=== PATIENT | female | born 1990 | race Caucasian/White ===

== ENCOUNTER 2019-04-13 00:45 | Inpatient (IN) ==
[2019-04-13] MEDS ORDERED: OXYTOCIN 30 UNITS/500 ML BAG IV PRN ×3 (01:11→16:18)
[2019-04-13] MEDS: LACTATED RINGER'S 1,000 ML IV PRN ×3 (01:15→12:01)
[2019-04-13 01:44] LABS: Hematocrit (blood only) 31.8 % (37-47); Hemoglobin 10.4 g/dL (12.0-16.0); Mean Corpuscular Hemoglobin 27.9 pg (25-34); Mean Corpuscular Volume 85.3 fL (80-100); Mean Platelet Volume 11.7 fL (7.4-10.4); Platelet Count 220 K/uL (130-400); RDW Coefficient of Variation 13.8 % (11.5-14.5); RDW Standard Deviation 42.7 fL (36.4-46.3); Red Blood Count 3.73 M/uL (4.2-5.4); White Blood Count 9.06 K/uL (4.8-10.8)
--- NOTE | 2019-04-13 01:52 | History & Physical Report ---
Date of Service April 13, 2019 Assessment & Plan (1) : Will admit to L&D, start pitocin. Green bulb still in place. Will allow this to fall out on its own. Patient is agreeable. History of Present Illness Chief Complaint: IOL, contractions Primary Care Provider: OLIVIER PCP 28yo @ 40 07/24 here with contractions. Her green bulb was placed last night and she began to feel ctx every few minutes and returned to the hospital. + movement, no vaginal bleeding, no leaking of fluid. uncomplicated. Allergies Allergy/AdvReac Type Severity Reaction Status Date / Time No Known Drug Allergies Allergy Verified 04/11/19 10:50 Home Medications Home Medications Medication Instructions Recorded Confirmed Type PNV cmb#95-ferrous fumarate-FA 1 tab PO DAILY 04/12/19 04/12/19 History [] Patient History Family History (Updated 11/18/18 @ 14:03 by Viktoriya Acosta) Grandfather (Maternal) Colorectal cancer Grandmother (Maternal) Diabetes Other Thyroid disease Social History (Updated 11/18/18 @ 14:03 by Viktoriya Acosta) Preferred Language: Kyrgyz marital status: Feels Safe at Home: Yes Smoking Status: Never smoker Hx Alcohol Use: No Hx Substance Use: No Review of Systems All systems reviewed & are unremarkable except as noted in HPI & below Physical Exam Physical Exam: FHT: Cat 1 [place]cher: Q 4-7 min Constitutional: WD/WN, vitals as above Respiratory: normal respiratory effort, lungs clear to auscultation no respiratory distress Cardiovascular: Rate/Rhythm: regular rate and regular rhythm Gastrointestinal (Abdomen): Inspection/Auscultation: abdomen normal to inspection Percussion/Palpation: abdomen soft; abdomen nontender Gravid. No s/s chorio or abruption. Skin: no rashes, warm and dry Psychiatric: A+Ox3, euthymic affect Results & Data Vital Signs (Past 12 Hours) Vital Signs Pulse BP 04/13/19 00:54 56 L 115/68
[2019-04-13 02:02] LABS: Mean Corpuscular Hgb Conc 32.7 g/dL (32-36)
--- NOTE | 2019-04-13 09:06 | Labor Progress Brief Note ---
Date of Service April 13, 2019 Subjective pt sitting up in bed, denies complaints. Assessment & Plan (1) Post-dates : (2) Encounter for induction of labor: cont with pit, fhts categ 1. green balloon in place. plan exam in next se veral hours. Physical Exam Constitutional: WD/WN, vitals as above Genitourinary: OB Exam Monitor Tracing: + external FHT monitor used, + external uterine monitor used (irreg, pit at 9), + category I and + normal FHT variability Results & Data Vital Signs (Past 12 Hours) Vital Signs Temp Pulse Resp BP 04/13/19 08:55 61 120/64 04/13/19 08:25 63 118/63 04/13/19 07:55 54 L 142/68 H 04/13/19 07:26 60 125/62 04/13/19 07:08 98.4 F 69 20 121/75 04/13/19 06:55 69 126/76 04/13/19 06:26 63 116/62 04/13/19 05:55 63 115/62 04/13/19 05:45 98.2 F 04/13/19 05:25 71 113/70 04/13/19 04:55 61 142/67 H 04/13/19 04:25 61 122/73 04/13/19 00:56 97.5 F L 56 L 115/68 04/13/19 00:54 56 L 115/68
--- NOTE | 2019-04-13 09:39 | Labor Progress Brief Note ---
Date of Service April 13, 2019 Subjective feels comfortable Assessment & Plan (1) Post-dates : (2) Encounter for induction of labor: c/w pit, will see how arom helps labor pattern. Physical Exam Constitutional: WD/WN, vitals as above Genitourinary: Manual OB Exam: + cervical dilation 4 cm, + cervical effacement (75%), + station -2 and + amniotic fluid clear OB Exam Monitor Tracing: + external FHT monitor used (120 mod variability, reactive), + external uterine monitor used (q3-4 pit at 11), + category I and + normal FHT variability Results & Data Vital Signs (Past 12 Hours) Vital Signs Temp Pulse Resp BP 04/13/19 09:25 73 112/69 04/13/19 08:55 61 120/64 04/13/19 08:25 63 118/63 04/13/19 07:55 54 L 142/68 H 04/13/19 07:26 60 125/62 04/13/19 07:08 98.4 F 69 20 121/75 04/13/19 06:55 69 126/76 04/13/19 06:26 63 116/62 04/13/19 05:55 63 115/62 04/13/19 05:45 98.2 F 04/13/19 05:25 71 113/70 04/13/19 04:55 61 142/67 H 04/13/19 04:25 61 122/73 04/13/19 00:56 97.5 F L 56 L 115/68 04/13/19 00:54 56 L 115/68
[2019-04-13] MEDS ORDERED: BUPIVACAINE 0.25% 30 ML VIAL ONE (11:45)
[2019-04-13] MEDS ORDERED: fentaNYL citrate 100 MCG/2 ML VIAL ONE (11:45)
[2019-04-13] MEDS ORDERED: ePHEDrine sulfate 50 MG/ML AMP ONE (11:45)
[2019-04-13] MEDS ORDERED: fentaNYL 2MCG/ML ROPIV 1.25MG/ML 100 ML BAG EPI ONE (11:46)
[2019-04-13] MEDS ORDERED: NALOXONE HCL 1 MG in SODIUM CHLORIDE 0.9% 1000ML 1,000 ML IV PRN (11:59)
[2019-04-13] MEDS ORDERED: NALBUPHINE HCL INJ 10 MG/ML AMP IV PRN (11:59)
[2019-04-13] MEDS ORDERED: fentaNYL 2MCG/ML ROPIV 1.25MG/ML 100 ML BAG EPI PRN (11:59)
[2019-04-13] MEDS ORDERED: NALOXONE HCL 0.4 MG/1 ML VIAL/CARP IV PRN (11:59)
[2019-04-13] MEDS ORDERED: DiphenhydrAMINE HCL 50 MG/ML VIAL IV PRN (11:59)
[2019-04-13] MEDS ORDERED: ePHEDrine sulfate 50 MG/ML AMP IV PRN (11:59)
--- NOTE | 2019-04-13 12:26 | Anesthesiology Consultation ---
Date of Service April 13, 2019 Assessment & Plan Chart Review Chart Review: Acceptable Risk for Surgery Consults Requested none History Height/Weight Height: 5 ft 3 in Weight: 68.039 kg Allergies Allergy/AdvReac Type Severity Reaction Status Date / Time No Known Drug Allergies Allergy Verified 04/11/19 10:50 Medications Home Medications Medication Instructions Recorded Confirmed Last Taken PNV cmb#95-ferrous fumarate-FA 1 tab PO DAILY 04/12/19 04/12/19 04/12/19 09:00 [] Active Medications Generic Name Dose Route Start Last Admin Trade Name Freq PRN Reason Stop Dose Admin Lactated Ringer's 1,000 mls @ 125 mls/hr 04/13/19 01:11 04/13/19 12:25 Lr IV 04/15/19 01:10 125 mls/hr .Q8H PRN Infusion L&D Protocol Protocol Oxytocin 30 units in 500 mls @ 17 mls/hr 04/13/19 01:11 04/13/19 11:20 Pitocin IV 04/15/19 01:10 1.02 units/hr .Q24H PRN 17 mls/hr Labor Induction/Augmentation Titration Protocol 1.02 UNITS/HR Past Family History Family History Grandfather (Maternal) Colorectal cancer Grandmother (Maternal) Diabetes Other Thyroid disease Past Surgical History Surgical History H/O oral surgery Social History Smoking Status: Never smoker Hx Alcohol Use: No Hx Substance Use: No Physical Exam Vital Signs Last Vital Signs Temp 36.9 C 04/13/19 09:45 Pulse 69 04/13/19 12:23 Resp 20 04/13/19 09:45 BP 122/65 04/13/19 12:23 Pulse Ox 99 04/13/19 12:20 Testing Laboratory Results 04/13/19 01:24
--- NOTE | 2019-04-13 13:32 | Labor Progress Brief Note ---
Date of Service April 13, 2019 Subjective comfortable with epidural Assessment & Plan (1) Post-dates : (2) Encounter for induction of labor: good cx change. fhts categ 1. c/ w pit Physical Exam Constitutional: WD/WN, vitals as above Genitourinary: Manual OB Exam: + cervical dilation 7 cm, + cervical effacement 90% and + station 0 OB Exam Monitor Tracing: + external FHT monitor used (130 mod variability), + external uterine monitor used (q3, pit at 17), + category I (early decels) and + normal FHT variability Results & Data Vital Signs (Past 12 Hours) Vital Signs Temp Pulse Resp BP Pulse Ox 04/13/19 13:25 74 100 04/13/19 13:20 68 100 04/13/19 13:15 64 115/65 100 04/13/19 13:10 73 100 04/13/19 13:05 64 100 04/13/19 13:01 61 112/56 L 04/13/19 13:00 62 100 04/13/19 12:55 62 100 04/13/19 12:50 64 100 04/13/19 12:45 69 100 04/13/19 12:44 67 117/59 L 04/13/19 12:40 74 117/57 L 100 04/13/19 12:35 72 113/61 99 04/13/19 12:30 78 98 04/13/19 12:29 71 119/64 04/13/19 12:27 71 120/64 04/13/19 12:25 75 120/63 100 04/13/19 12:23 69 122/65 04/13/19 12:21 72 121/68 04/13/19 12:20 72 99 04/13/19 12:19 80 121/69 04/13/19 12:17 83 111/76 04/13/19 12:15 74 99 04/13/19 12:10 69 99 04/13/19 12:05 80 100 04/13/19 12:00 77 100 04/13/19 10:39 72 139/65 04/13/19 09:45 98.4 F 80 20 123/72 04/13/19 09:25 73 112/69 04/13/19 08:55 61 120/64 04/13/19 08:25 63 118/63 04/13/19 07:55 54 L 142/68 H 04/13/19 07:26 60 125/62 04/13/19 07:08 98.4 F 69 20 121/75 04/13/19 06:55 69 126/76 04/13/19 06:26 63 116/62 04/13/19 05:55 63 115/62 04/13/19 05:45 98.2 F 04/13/19 05:25 71 113/70 04/13/19 04:55 61 142/67 H 04/13/19 04:25 61 122/73
--- NOTE | 2019-04-13 15:08 | Labor Progress Brief Note ---
Date of Service April 13, 2019 Subjective feeling pressure, per nurse completely dilated. Assessment & Plan (1) Post-dates : (2) Encounter for induction of labor: c/w pit, fhts categ 2, begin 2nd stage. Physical Exam Constitutional: WD/WN, vitals as above Genitourinary: OB Exam Monitor Tracing: + external FHT monitor used (150 moderate variability , +spont accels, occas variable decels), + external uterine monitor used (q2-3), + category II, + normal FHT variability and + early decelerations present Results & Data Vital Signs (Past 12 Hours) Vital Signs Temp Pulse Resp BP Pulse Ox 04/13/19 15:05 74 100 04/13/19 15:02 63 122/75 04/13/19 15:00 68 116/68 100 04/13/19 14:55 67 97 04/13/19 14:50 63 100 04/13/19 14:46 60 113/65 04/13/19 14:45 67 99 04/13/19 14:40 63 100 04/13/19 14:35 65 100 04/13/19 14:30 64 121/71 100 04/13/19 14:25 65 100 04/13/19 14:20 60 100 04/13/19 14:15 61 125/73 100 04/13/19 14:10 61 100 04/13/19 14:05 64 99 04/13/19 14:01 72 119/69 04/13/19 14:00 83 100 04/13/19 13:55 66 100 04/13/19 13:50 66 100 04/13/19 13:45 65 124/69 100 04/13/19 13:40 66 100 04/13/19 13:35 66 100 04/13/19 13:30 68 117/70 100 04/13/19 13:25 74 100 04/13/19 13:20 68 100 04/13/19 13:15 64 115/65 100 04/13/19 13:10 73 100 04/13/19 13:05 64 100 04/13/19 13:01 61 112/56 L 04/13/19 13:00 62 100 04/13/19 12:55 62 100 04/13/19 12:50 64 100 04/13/19 12:45 69 100 04/13/19 12:44 67 117/59 L 04/13/19 12:40 74 117/57 L 100 04/13/19 12:35 72 113/61 99 04/13/19 12:30 78 98 04/13/19 12:29 71 119/64 04/13/19 12:27 71 120/64 04/13/19 12:25 75 120/63 100 04/13/19 12:23 69 122/65 04/13/19 12:21 72 121/68 04/13/19 12:20 72 99 04/13/19 12:19 80 121/69 04/13/19 12:17 83 111/76 04/13/19 12:15 74 99 04/13/19 12:10 69 99 04/13/19 12:05 80 100 04/13/19 12:00 77 100 04/13/19 10:39 72 139/65 04/13/19 09:45 98.4 F 80 20 123/72 04/13/19 09:25 73 112/69 04/13/19 08:55 61 120/64 04/13/19 08:25 63 118/63 04/13/19 07:55 54 L 142/68 H 04/13/19 07:26 60 125/62 04/13/19 07:08 98.4 F 69 20 121/75 04/13/19 06:55 69 126/76 04/13/19 06:26 63 116/62 04/13/19 05:55 63 115/62 04/13/19 05:45 98.2 F 04/13/19 05:25 71 113/70 04/13/19 04:55 61 142/67 H 04/13/19 04:25 61 122/73
[2019-04-13] MEDS ORDERED: BENZOCAINE 20% AER SPR 82.5 GM CAN EXT PRN (16:18)
[2019-04-13] MEDS ORDERED: SUPERCREAM 0.870% 15 GM JAR EXT PRN (16:18)
[2019-04-13] MEDS ORDERED: OXYCODONE/ACETAMINOPHEN 5mg/325mg TAB PO PRN (16:18)
[2019-04-13] MEDS ORDERED: HYDROCORTISONE ACETATE 25 MG SUPP PR PRN (16:18)
[2019-04-13] MEDS ORDERED: DIPHTHERIA/TETANUS/PERTUSSIS 0.5 ML SYR/VIAL IM ONE (16:23)
--- NOTE | 2019-04-13 16:24 | Delivery Summary ---
Vaginal Delivery Summary Date of Service April 13, 2019 Vaginal Delivery Summary The patient dilated to complete and pushed to deliver a viable female Apgars 8 and 9 via over partial 3rd degree perineal laceration. Mouth and nose bulb suctioned at perineum. Shoulders and body delivered with ease. was vigorous and crying at . Cord clamped and infant to maternal abdomen where the cord was then doubly clamped and cut. Placenta delivered spontaneously and intact, three-vessel cord. Hemostasis achieved with dilute pitocin and uterine massage. Cervix intact. Bilateral sulcal tears noted and repaired with 3-0 vicryl and then remainder of vaginal tissues to hymen reapproximated. Anal sphincter intact but capsule reinforced with interrupted sutures of 2-0 vicryl. Remainder of perineum reapproximated in usual fashion with 3-0 vicry. EBL 300 cc. Mother and baby stable recovery. [facility] Vaginal Delivery Charge Vaginal Delivery Codes: 98321 global code for the antepartum, delivery, and post-
[2019-04-13] MEDS ORDERED: OXYTOCIN 20 UNITS in LACTATED RINGER'S 1,000 ML IV SCH (16:30)
--- NOTE | 2019-04-13 17:57 | Anesthesia Procedure Note ---
Date of Service April 13, 2019 Anesthesia Post Epidural Note Vital Signs Vital Signs: Temp Pulse Resp BP Pulse Ox 36.9 C 76 20 110/64 98 04/13/19 09:45 04/13/19 17:45 04/13/19 09:45 04/13/19 17:45 04/13/19 15:50 Notes Mental Status: alert / awake / arousable Nausea / Vomiting: adequately controlled Pain: adequately controlled Airway Patency, RR, SpO2: stable & adequate BP & HR: stable & adequate Hydration State: stable & adequate Neuraxial Anesthesia: was administered and sensory block is resolving Anesthetic Complications: no major complications apparent and Pt Satisfied with anesthetic care Epidural: Removed without complications and With tip intact
[2019-04-13] MEDS: IBUPROFEN 600 MG TAB PO PRN (19:32)
[2019-04-13] MEDS: DOCUSATE SODIUM 100 MG CAP PO SCH (20:49)
[2019-04-14] MEDS: IBUPROFEN 600 MG TAB PO PRN ×4 (01:01→19:26)
--- NOTE | 2019-04-14 07:43 | Obstetrical Progress Note ---
Date of Service April 14, 2019 Assessment & Plan (1) Encounter for care and examination after delivery: 28 yo induced for post-dates without complications at 40w4d. 1) PPD1 s/p - ambulating, tolerating full diet - no complaints this AM - trying - supportive care (2) Post-dates : Supervising Physician Co-Signing Physician Notes Resident Physician Supervision Note: I was present with Dr. Degroot during the history and exam. I discussed the case with the resident and agree with the findings and plan as documented in the note. Any exceptions or clarifications are listed here: doing well, ff 2 down appropriate tenderness, breast feeding, eating, voiding, ambulating. routine care. Documented By: Mandie Spangler MD, FACOG Subjective No complaints this AM. Has been able to tolerate an oral diet, ambulate, and void without difficulty. Passing gas, no BM yet. Review of Systems Constitutional: + fatigue; no fever and no chills Respiratory: no cough and no dyspnea Cardiovascular: no chest pain, no syncope, no edema and no calf pain Gastrointestinal: no abdominal pain, no nausea, no vomiting, no cramping, no constipation and no diarrhea/loose stools Genitourinary: no dysuria and no difficulty urinating Neurologic: no headache(s) Physical Exam Constitutional: well developed and well nourished Respiratory: normal respiratory effort; no respiratory distress, no labored breathing and no cough Auscultation: no crackles, no rales, no rhonchi and no wheezes Cardiovascular: Rate/Rhythm: regular rate and regular rhythm Heart Sounds: no gallop, no murmur and no cardiac rub Extremities: no pedal edema Gastrointestinal (Abdomen): Inspection/Auscultation: + abdomen distended and normal bowel sounds Percussion/Palpation: abdomen soft; no guarding Musculoskeletal: no tenderness to palpation of calves bilaterally Genitourinary: Uterus small and firm, palpable in midline at level of umbilicus, some tenderness to palpation. Results & Data Vital Signs (Past 12 Hours) Vital Signs Temp Pulse Resp BP Pulse Ox 04/14/19 04:00 36.3 C L 59 L 16 106/72 04/14/19 01:00 36.9 C 58 L 16 121/80 100 04/13/19 20:35 36.7 C 67 16 104/65 99 Resident Activity Tracking Resident Involvement: Resident Care Provided Care Provided: Adult Hospital Medicine and OB Delivery
[2019-04-14] MEDS: DOCUSATE SODIUM 100 MG CAP PO SCH ×2 (08:45→21:28)
[2019-04-14] MEDS: ACETAMINOPHEN 325 MG TAB PO PRN ×3 (10:10→22:16)
[2019-04-15] MEDS: IBUPROFEN 600 MG TAB PO PRN ×3 (00:15→13:07)
[2019-04-15] MEDS: DOCUSATE SODIUM 100 MG CAP PO SCH (07:52)
--- NOTE | 2019-04-15 08:40 | Obstetrical Progress Note ---
Date of Service April 15, 2019 Assessment & Plan (1) Encounter for care and examination after delivery: - patient desires d/c - instructions given - f/u in 6 weeks Subjective Ambulation: ambulating normally Diet Tolerance:: regular diet Feeding Type:: breast feeding Physical Exam Constitutional WD/WN, vitals as above Gastrointestinal (Abdomen) Fundus firm below umbilicus Musculoskeletal No deep calf tenderness Results & Data Vital Signs (Past 12 Hours) Vital Signs Temp Pulse Resp BP Pulse Ox 04/14/19 23:45 98.2 F 65 18 112/69 99
== END 2019-04-15 13:15 | disposition home or self-care (01) | DRG 768 ==
LOC: OPB 00:45 → 4S1 00:47 → 4S2 19:30

== ENCOUNTER 2021-04-24 07:46 | Inpatient (IN) ==
[2021-04-24] MEDS ORDERED: OXYTOCIN 30 UNITS/500 ML BAG IV PRN ×3 (07:57→22:46)
[2021-04-24 08:20] LABS: Hematocrit (blood only) 37.4 % (37-47); Hemoglobin 12.2 g/dL (12.0-16.0); Mean Corpuscular Hemoglobin 30.6 pg (25-34); Mean Corpuscular Hgb Conc 32.6 g/dL (32-36); Mean Corpuscular Volume 93.7 fL (80-100); Mean Platelet Volume 11.4 fL (7.4-10.4); Platelet Count 210 K/uL (130-400); RDW Coefficient of Variation 13.8 % (11.5-14.5); RDW Standard Deviation 47.4 fL (36.4-46.3); Red Blood Count 3.99 M/uL (4.2-5.4); White Blood Count 7.42 K/uL (4.8-10.8)
--- NOTE | 2021-04-24 08:48 | History & Physical Report ---
Date of Service April 24, 2021 Assessment & Plan (1) Post term , 41 weeks: (2) Encounter for induction of labor: Plan: admit, green for cervical ripening placed. fetus reassuring. plan to start pit at some time and likely arom. desires epidural. Anticipate . Admission and Anticipated Discharge Date Admission Date: April 24, 2021 History of Present Illness Chief Complaint: pd induction Primary Care Provider: LUZMA Pride Patient is a 30yowf with iup at 41 2/7 weeks who presents to labor and delivery for postdates induction. She feels well. Occcasional contractions. no lof/vb. +fm. and Delivery Plans Placental Shelf on anatomy scan vs. Non-fused amnion *Growth monthly [id number] at 28 week *see addendum on note dated 02/19/21 * declined genetics per Dr. Spangler Flu shot 01/22/21 OB Labs: Blood Type A Positive 09/09/20 Antibody Screen NEGATIVE 09/09/20 Hemoglobin 12.0 g/dL (12.0-16.0) 01/22/21 Hematocrit 36.2 % (37-47) L 01/22/21 Mean Corpuscular Volume 90.7 fL (80-100) 09/09/20 Platelet Count 268 K/uL (130-400) 09/09/20 Rubella IgG Antibody Immune (Immune) 09/09/20 Rapid Plasma Reagin Nonreactive (Nonreactive) 09/09/20 Hepatitis B Surface Antigen Neg (Neg) 09/09/20 HIV (1&2) Ab and P24 Ag, 4th Gener Neg (Neg) 09/09/20 Glucose 1 Hour 50 gm Load 65 mg/dl (70-130) L 01/22/21 OB Optional Labs: Chlamydia trachomatis RNA NOT DETECTED (NOT DETECTED) 09/09/20 Neisseria gonorrhoeae RNA NOT DETECTED (NOT DETECTED) 09/09/20 Labs Reviewed: declined CF/SMA/cfDNA/afp gbs neg Allergies Allergy/AdvReac Type Severity Reaction Status Date / Time No Known Drug Allergies Allergy Verified 04/23/21 15:30 Home Medications Medication Instructions Recorded Confirmed Type vit no.95-ferrous 1 tab PO DAILY 04/12/19 04/23/21 History fumarate 28 mg-folic acid 800 mcg tablet () Patient History Medical History History of chicken pox Surgical History H/O adenoidectomy H/O oral surgery Family History Grandfather (Maternal) Colorectal cancer Grandmother (Maternal) Diabetes Other Thyroid disease Denies family history of Ovarian cancer Breast cancer Social History Smoking Status: Never smoker Second Hand Exposure: No; Hx Alcohol Use: No Hx Substance Use: No Preferred Language: [place] Communication Ability: Effective Manager Service Desk Required: No Beliefs That Will Affect Care: None marital status: marital status details: Vin Ivey (39) [phone] Current Living Situation: Family Current Living Situation Comment: lives with spouse, child, no pets current occupational status: employed 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 Date GA wks Lbr Lgth wt Sex Type del Anes Place Del Prov ? Com ment 12/01/17 Aborted-Spontaneous 04/13/19 40 6lbs 15oz F Epi dural [facility] Spangler No DATA ANALYTICS SPECIALIST History noncontributory Physical Exam Constitutional: WD/WN, vitals as above Gastrointestinal (Abdomen): soft, gravid, nt Psychiatric: A+Ox3, euthymic affect Genitourinary: cx--/-2 green bulb placed under direct visualization, filled with 30cc of sterile water, tolerated well toco--occasional efm--140s with mod variaiblity, accels to 150s, no decels Results & Data ([facility]) Vital Signs (Past 12 Hours) Vital Signs Temp Pulse Resp BP 04/24/21 08:09 86 110/63 04/24/21 08:03 37.0 C 18 Coding Level of Care Code None Diagnoses Post term , 41 weeks O48.0; Z3A.41 Encounter for induction of labor Z34.90
[2021-04-24] MEDS: LACTATED RINGER'S 1,000 ML IV PRN ×3 (11:53→21:54)
[2021-04-24] MEDS ORDERED: BUPIVACAINE 0.25% 30 ML VIAL ONE (14:38)
[2021-04-24] MEDS ORDERED: SODIUM CHLORIDE 0.9% INJ 10 ML VIAL ONE (14:38)
[2021-04-24] MEDS ORDERED: fentaNYL citrate 100 MCG/2 ML VIAL ONE (14:38)
[2021-04-24] MEDS ORDERED: ePHEDrine sulfate 50 MG/ML AMP ONE (14:38)
[2021-04-24] MEDS ORDERED: fentaNYL 2MCG/ML ROPIVACAINE 1.25MG/ML 100 ML BAG EPI ONE (14:39)
--- NOTE | 2021-04-24 15:42 | Anesthesiology Consultation ---
Date of Service April 24, 2021 Assessment & Plan Chart Review Chart Review: Acceptable Risk for Surgery Consults Requested none History Height/Weight Height: 5 ft 3 in Weight: 72.575 kg Allergies Allergy/AdvReac Type Severity Reaction Status Date / Time No Known Drug Allergies Allergy Verified 04/23/21 15:30 Medications Home Medications Medication Instructions Recorded Confirmed Last Taken vit no.95-ferrous 1 tab PO DAILY 04/12/19 04/24/21 04/23/21 fumarate 28 mg-folic acid 800 mcg tablet () Active Medications Generic Name Dose Route Start Last Admin Trade Name Freq PRN Reason Stop Dose Admin Lactated Ringer's 1,000 mls @ 125 mls/hr 04/24/21 07:57 04/24/21 15:13 Lr IV 04/26/21 07:56 125 mls/hr .Q8H PRN Administration L&D Protocol Protocol Oxytocin 30 units in 500 mls @ 1 mls/hr 04/24/21 10:58 04/24/21 11:53 Pitocin IV 04/26/21 10:57 0.06 units/hr .Q24H PRN 1 mls/hr Labor Induction/Augmentation Administration Protocol 0.06 UNITS/HR Past Medical History Medical History History of chicken pox Past Family History Family History Grandfather (Maternal) Colorectal cancer Grandmother (Maternal) Diabetes Other Thyroid disease Denies family history of Ovarian cancer Breast cancer Past Surgical History Surgical History H/O adenoidectomy H/O oral surgery Social History Smoking Status: Never smoker Hx Alcohol Use: No Hx Substance Use: No Physical Exam Vital Signs Last Vital Signs Temp 36.9 C 04/24/21 11:58 Pulse 83 04/24/21 15:40 Resp 18 04/24/21 15:00 BP 108/57 L 04/24/21 15:40 Pulse Ox 100 04/24/21 15:37 Testing Laboratory Results 04/24/21 08:02
[2021-04-24] MEDS ORDERED: diphenhydrAMINE 50 MG/ML VIAL IV PRN (15:43)
[2021-04-24] MEDS ORDERED: NALOXONE HCL 1 MG in SODIUM CHLORIDE 0.9% 1000ML 1,000 ML IV PRN (15:43)
[2021-04-24] MEDS ORDERED: NALBUPHINE HCL INJ 10 MG/ML AMP IV PRN (15:43)
[2021-04-24] MEDS ORDERED: ePHEDrine sulfate 50 MG/ML AMP IV PRN (15:43)
[2021-04-24] MEDS ORDERED: fentaNYL 2MCG/ML ROPIVACAINE 1.25MG/ML 100 ML BAG EPI PRN (15:43)
[2021-04-24] MEDS ORDERED: NALOXONE HCL 0.4 MG/1 ML VIAL/CARP IV PRN (15:43)
--- NOTE | 2021-04-24 17:53 | Labor Progress Brief Note ---
Date of Service April 24, 2021 Subjective Carlson bulb fell out a few hours ago and she got an epidural prior to me doing a c/s. She is comfortable. Assessment & Plan (1) Encounter for induction of labor: (2) Post term , 41 weeks: Plan: arom done. continue current management. Fetus overall category one. Admission and Anticipated Discharge Date Admission Date: April 24, 2021 Physical Exam Physical Exam: cx--4-5/75/-2 arom--copious clear toco--q 2-3min efm--140s with mod variability, accels present, rare variable Results & Data ([facility]) Vital Signs (Past 12 Hours) Vital Signs Temp Pulse Resp BP Pulse Ox 04/24/21 17:48 74 90/53 L 04/24/21 17:47 76 100 04/24/21 17:42 68 99 04/24/21 17:37 70 100 04/24/21 17:33 67 90/50 L 04/24/21 17:32 68 100 04/24/21 17:27 71 100 04/24/21 17:22 70 100 04/24/21 17:18 73 95/52 L 04/24/21 17:17 73 100 04/24/21 17:12 71 100 04/24/21 17:07 75 100 04/24/21 17:03 71 92/51 L 04/24/21 17:02 73 100 04/24/21 16:57 75 100 04/24/21 16:52 73 100 04/24/21 16:47 69 97/56 L 100 04/24/21 16:42 79 100 04/24/21 16:37 70 98 04/24/21 16:34 71 103/63 04/24/21 16:32 72 100 04/24/21 16:30 18 04/24/21 16:27 73 100 04/24/21 16:22 77 100 04/24/21 16:19 75 93/52 L 04/24/21 16:17 73 100 04/24/21 16:12 74 100 04/24/21 16:07 80 100 04/24/21 16:02 81 101/60 100 04/24/21 16:00 18 04/24/21 15:57 81 99 04/24/21 15:56 85 105/65 04/24/21 15:52 79 99 01/06/22 15:51 77 99/59 L 04/24/21 15:48 78 96/55 L 04/24/21 15:47 78 100 04/24/21 15:42 85 100 04/24/21 15:40 83 18 108/57 L 04/24/21 15:38 75 18 104/59 L 04/24/21 15:37 79 100 04/24/21 15:36 81 18 105/57 L 04/24/21 15:34 93 H 18 106/56 L 04/24/21 15:32 85 18 105/59 L 100 04/24/21 15:30 80 18 109/58 L 04/24/21 15:28 82 18 108/55 L 04/24/21 15:27 83 100 04/24/21 15:25 81 120/59 L 04/24/21 15:22 78 100 04/24/21 15:17 94 H 100 04/24/21 15:12 94 H 100 04/24/21 15:08 88 122/73 04/24/21 15:07 85 100 04/24/21 15:02 78 100 04/24/21 15:00 18 04/24/21 14:57 73 100 04/24/21 14:52 73 100 04/24/21 14:47 71 100 04/24/21 14:42 67 100 04/24/21 14:37 67 100 04/24/21 14:12 65 116/61 04/24/21 14:00 18 04/24/21 13:09 72 101/66 04/24/21 13:00 18 04/24/21 11:58 36.9 C 67 104/67 04/24/21 08:09 37.0 C 86 110/63 04/24/21 08:03 37.0 C 18 Coding Level of Care Code None Diagnoses Encounter for induction of labor Z34.90 Post term , 41 weeks O48.0; Z3A.41
--- NOTE | 2021-04-24 20:29 | Labor Progress Brief Note ---
Date of Service April 24, 2021 Subjective noting some discomfort wtih contractions Assessment & Plan (1) Encounter for induction of labor: (2) Post term , 41 weeks: Plan: continue current management. fetus overall reassuring, category one. Anticipate . Admission and Anticipated Discharge Date Admission Date: April 24, 2021 Physical Exam Physical Exam: cx--7/100/0 toco--q2-3min, pit at 6 efm--130s wtih mod variability, accels to 150s, occasional early/variable Results & Data ([facility]) Vital Signs (Past 12 Hours) Vital Signs Temp Pulse Resp BP Pulse Ox 04/24/21 20:22 80 98 04/24/21 20:18 76 102/64 04/24/21 20:17 83 100 04/24/21 20:12 75 99 04/24/21 20:07 84 100 04/24/21 20:03 72 114/69 04/24/21 20:02 70 100 04/24/21 19:57 72 100 04/24/21 19:52 76 100 04/24/21 19:47 80 107/64 100 04/24/21 19:42 86 100 04/24/21 19:37 85 100 04/24/21 19:35 82 93 04/24/21 19:32 68 106/60 99 04/24/21 19:27 63 100 04/24/21 19:22 64 100 04/24/21 19:18 66 105/59 L 04/24/21 19:17 67 100 04/24/21 19:12 64 100 04/24/21 19:07 70 100 04/24/21 19:02 74 94/54 L 100 04/24/21 19:00 36.8 C 18 04/24/21 18:57 70 100 04/24/21 18:52 86 100 04/24/21 18:47 69 98/56 L 99 04/24/21 18:42 69 99 04/24/21 18:37 63 99 04/24/21 18:32 68 102/55 L 99 04/24/21 18:30 37.0 C 18 04/24/21 18:27 67 98 04/24/21 18:22 68 99 04/24/21 18:17 70 99/55 L 99 04/24/21 18:12 71 99 04/24/21 18:07 70 99 04/24/21 18:03 76 107/56 L 04/24/21 18:02 74 99 04/24/21 18:00 37.0 C 18 04/24/21 17:57 73 99 04/24/21 17:52 72 100 04/24/21 17:48 74 90/53 L 04/24/21 17:47 76 100 04/24/21 17:42 68 99 04/24/21 17:37 70 100 04/24/21 17:33 67 90/50 L 04/24/21 17:32 68 100 04/24/21 17:27 71 100 04/24/21 17:22 70 100 04/24/21 17:18 73 95/52 L 04/24/21 17:17 73 100 04/24/21 17:12 71 100 04/24/21 17:07 75 100 04/24/21 17:03 71 92/51 L 04/24/21 17:02 73 100 04/24/21 16:57 75 100 04/24/21 16:52 73 100 04/24/21 16:47 69 97/56 L 100 04/24/21 16:42 79 100 04/24/21 16:37 70 98 04/24/21 16:34 71 103/63 04/24/21 16:32 72 100 04/24/21 16:30 18 04/24/21 16:27 73 100 04/24/21 16:22 77 100 04/24/21 16:19 75 93/52 L 04/24/21 16:17 73 100 04/24/21 16:12 74 100 04/24/21 16:07 80 100 04/24/21 16:02 81 101/60 100 04/24/21 16:00 18 04/24/21 15:57 81 99 04/24/21 15:56 85 105/65 04/24/21 15:52 79 99 04/24/21 15:51 77 99/59 L 04/24/21 15:48 78 96/55 L 04/24/21 15:47 78 100 04/24/21 15:42 85 100 04/24/21 15:40 83 18 108/57 L 04/24/21 15:38 75 18 104/59 L 01/06/22 15:37 79 100 04/24/21 15:36 81 18 105/57 L 04/24/21 15:34 93 H 18 106/56 L 04/24/21 15:32 85 18 105/59 L 100 04/24/21 15:30 80 18 109/58 L 04/24/21 15:28 82 18 108/55 L 04/24/21 15:27 83 100 04/24/21 15:25 81 120/59 L 04/24/21 15:22 78 100 04/24/21 15:17 94 H 100 04/24/21 15:12 94 H 100 04/24/21 15:08 88 122/73 04/24/21 15:07 85 100 04/24/21 15:02 78 100 04/24/21 15:00 18 04/24/21 14:57 73 100 04/24/21 14:52 73 100 04/24/21 14:47 71 100 04/24/21 14:42 67 100 04/24/21 14:37 67 100 04/24/21 14:12 65 116/61 04/24/21 14:00 18 04/24/21 13:09 72 101/66 04/24/21 13:00 18 04/24/21 11:58 36.9 C 67 104/67 Coding Level of Care Code None Diagnoses Encounter for induction of labor Z34.90 Post term , 41 weeks O48.0; Z3A.41
[2021-04-24] MEDS ORDERED: NURSING L&D Epidural Breakthrough Pain Update ONE (20:55)
[2021-04-24] MEDS ORDERED: DIPHTHERIA/TETANUS/PERTUSSIS 0.5 ML SYR/VIAL IM ONE (22:46)
[2021-04-24] MEDS ORDERED: SUPERCREAM 0.870% 15 GM JAR EXT PRN (22:46)
[2021-04-24] MEDS ORDERED: BENZOCAINE 20% AER SPR 82.5 GM CAN EXT PRN (22:46)
[2021-04-24] MEDS ORDERED: ACETAMINOPHEN 325 MG TAB PO PRN (22:46)
[2021-04-24] MEDS ORDERED: oxyCODONE/ACETAMINOPHEN 5mg/325mg TAB PO PRN (22:46)
[2021-04-24] MEDS ORDERED: HYDROCORTISONE ACETATE 25 MG SUPP PR PRN (22:46)
--- NOTE | 2021-04-24 22:57 | Delivery Summary ---
Vaginal Delivery Summary Date of Service April 24, 2021 Vaginal Delivery Summary and 2nd Degree LAC (with bilateral sulcal lacerations. took 45 minutes to repair, complicated) Pre-operative Diagnosis: at 41 2/7 weeks Post-operative Diagnosis: same complicated bilateral sulcal lacerations with second degree laceration Procedure: green bulb pitocin induction epidural arom complicated laceration with repair EBL: 600cc Anesthesia: epidural Procedure: The patient presented to labor and delivery for postdates induction. She received a green bulb and then pitocin for induction. The bulb fell out and she was contraction every 3-5min. She underwent an epidural. she then had arom for copious clear fluid. She then progressed to c/c/+1. The patient pushed for about 45 minutes to deliver a viable female in doa position. I assisted the patient with pushing and there was a tight band in the vagina that was finally released. Upon release, the patient started to have some bleeding. suspected there were sulcal lacerations at this time. The nose and mouth were bulb suctioned on the perineum and the rest of the was then delivered slowly without difficulty. The baby was vigorous. The nose and mouth were again bulb suctioned and the infant was placed in the maternal abdomen for drying and attention. Cord was clamped and cut at one minute of life. Cord blood and segment obtained. Placenta delivered spontaneous, intact with a three vessel cord. The placenta appeared to have two large parts and a shelf. cervix/rectum/sphincter were intact. However, there was a complicated bilateral sulcal laceration and second degree laceration identified. ON the left, the laceration started at the midvagina just behind the pubic bone and was high lateral. The one on the right started just inside of the vagina. Once these were repaired I was able to reapproximate the perineal body with deep sutures and then closed the perineum in a standard fashion. I examined the upper vagina and found I had reapproximated the vaginal wall lacerations at the apex. Cervix intact. Rectal exam negative. It took me approximately 45 minutes to complete this repair. Hemostasis obtained with dilute pitocin and fundal massage. Apgars were 8/9. Mother and baby doing well at the end of the delivery. EBL around 600cc mostly from the tears bleeding prior to delivery and then bleeding from the vaginal and perineal tissues[place] [facility] [place] Delivery Type Details: and 2nd Degree LAC (with bilateral sulcal lacerations. took 45 minutes to repair, complicated)
[2021-04-24] MEDS ORDERED: ceFAZolin 2000MG 2,000 MG/15 ML SYR IV STA (23:33)
[2021-04-25] MEDS: IBUPROFEN 600 MG TAB PO PRN ×4 (00:05→18:24)
[2021-04-25] MEDS ORDERED: AMMONIA, AROMATIC INHAL 1 EA AMP INH ONE (01:07)
--- NOTE | 2021-04-25 07:11 | Obstetrical Progress Note ---
Date of Service <Diaz Llanos MD - Last Filed: 04/25/21 07:24> April 25, 2021 Assessment & Plan <Diaz Llanos MD - Last Filed: 04/25/21 07:24> (1) Encounter for care and examination after delivery: PPD 1: stable, routine management * patient voiding and ambulating without difficulty * pain well controlled on analgesia * tolerating regular diet * breast feeding * reassess d/c readiness this evening vs tomorrow <Myrna Steen MD, FACOG - Last Filed: 04/25/21 07:31> (1) Encounter for care and examination after delivery: Subjective <Diaz Llanos MD - Last Filed: 04/25/21 07:24> Mariana is a 30-year-old who is now PPD 1 following spontaneous vaginal delivery at 41.2 weeks. Reports feeling well overall this morning. Reports minimal pain well managed on analgesics. Tolerating meals well and able to ambulate. Some persistent lochia with some improvement this morning. . Review of Systems Denies fever, chills, sweats Denies shortness of breath, difficulty breathing, chest pain, palpitations, chest pressure. Denies breast pain. Denies dysuria. Denies headache or changes in vision Physical Exam <Diaz Llanos MD - Last Filed: 04/25/21 07:24> General: Alert, oriented. No acute distress. Cardiac: Regular rate and rhythm, no murmurs/rubs/gallops. Respiratory: Clear to auscultation bilaterally a/p, no wheezes/rales/rhonchi. No increased work of breathing. Symmetrical chest rise. No respiratory distress. Abdomen: Soft, nontender, nondistended. Bowel sounds present. Uterus: Uterine fundus firm, palpable 2 cm below umbilicus. Lower Extremities: No lower extremity edema or swelling. No deep calf pain. Glendy's negative bilaterally.. Results & Data ([facility]) <Diaz Llanos MD - Last Filed: 04/25/21 07:24> Vital Signs (Past 12 Hours) Vital Signs Temp Pulse Pulse Resp BP BP Pulse Ox 04/25/21 03:45 36.9 C 74 16 94/54 L 98 04/25/21 01:15 36.7 C 76 16 111/70 98 04/25/21 00:47 99 H 104/64 04/25/21 00:32 103 H 103/59 L 04/25/21 00:17 94 H 103/55 L 04/24/21 23:47 94 H 110/63 04/24/21 23:32 97 H 100/55 L 04/24/21 23:17 97 H 97/54 L 04/24/21 23:02 104 H 96/53 L 04/24/21 22:47 91 H 104/57 L 04/24/21 22:32 87 92/54 L 04/24/21 22:17 85 114/58 L 99 04/24/21 22:12 96 H 99 04/24/21 22:07 96 H 100 04/24/21 22:02 98 H 116/58 L 100 04/24/21 21:57 136 H 100 04/24/21 21:53 109 H 92 04/24/21 21:52 110 H 98 04/24/21 21:48 91 H 89 L 04/24/21 21:47 95 H 121/57 L 100 04/24/21 21:43 90 82 L 04/24/21 21:42 90 100 04/24/21 21:37 88 95 04/24/21 21:36 78 90 04/24/21 21:32 101 H 117/61 100 04/24/21 21:27 98 H 99 04/24/21 21:22 74 100 04/24/21 21:17 61 97/56 L 99 04/24/21 21:12 72 99 04/24/21 21:07 70 100 04/24/21 21:02 72 104/61 99 04/24/21 20:57 69 99 04/24/21 20:52 74 99 04/24/21 20:48 79 104/59 L 04/24/21 20:47 78 99 04/24/21 20:42 86 98 04/24/21 20:37 75 100 04/24/21 20:32 72 108/62 99 04/24/21 20:27 74 100 04/24/21 20:22 80 98 04/24/21 20:18 76 102/64 04/24/21 20:17 83 100 04/24/21 20:12 75 99 04/24/21 20:07 84 100 04/24/21 20:03 72 114/69 04/24/21 20:02 70 100 04/24/21 19:57 72 100 04/24/21 19:52 76 100 04/24/21 19:47 80 107/64 100 04/24/21 19:42 86 100 04/24/21 19:37 85 100 04/24/21 19:35 82 93 04/24/21 19:32 68 106/60 99 04/24/21 19:27 63 100 04/24/21 19:22 64 100 04/24/21 19:18 66 105/59 L 04/24/21 19:17 67 100 04/24/21 19:12 64 100 04/24/21 19:07 70 100 <Myrna Steen MD, FACOG - Last Filed: 04/25/21 07:31> Co-Signing Physician Notes Resident Physician Supervision Note: I interviewed and examined the patient. Discussed with Dr. Bunch and agree with findings and plan as documented in the note. Any exceptions or clarifications are listed here: Doing well. Routine day 1 . discussed her tear and healing from that. Documented By: Myrna Steen MD, FACOG Resident Activity Tracking <Diaz Llanos MD - Last Filed: 04/25/21 07:24> Resident Involvement: Resident Care Provided Care Provided: OB Delivery
[2021-04-25 07:33] LABS: Hemoglobin 9.6 g/dL (12.0-16.0)
[2021-04-25] MEDS: DOCUSATE SODIUM 100 MG CAP PO SCH ×2 (07:35→21:15)
[2021-04-25] MEDS: PRENATAL VITAMIN 1 TAB PO SCH (07:35)
--- NOTE | 2021-04-25 11:33 | Anesthesia Procedure Note ---
Date of Service April 25, 2021 Anesthesia Post Epidural Note Vital Signs Vital Signs: Temp Pulse Resp BP Pulse Ox 36.9 C 70 18 114/72 100 04/25/21 07:15 04/25/21 07:15 04/25/21 07:15 04/25/21 07:15 04/25/21 07:15 Pain Intensity Lower Abdomen: Pain Intensity: 0 Episiotomy/Laceration: Pain Intensity: 4 Notes Mental Status: alert / awake / arousable Nausea / Vomiting: adequately controlled Pain: adequately controlled Airway Patency, RR, SpO2: stable & adequate BP & HR: stable & adequate Hydration State: stable & adequate Neuraxial Anesthesia: was administered and sensory block is resolving Anesthetic Complications: no major complications apparent and Pt Satisfied with anesthetic care Epidural: Removed without complications and With tip intact
[2021-04-25] MEDS ORDERED: bisacodyL 5 MG TABEC PO SCH (20:00)
[2021-04-26] MEDS: IBUPROFEN 600 MG TAB PO PRN ×2 (01:21→08:47)
--- NOTE | 2021-04-26 07:06 | Obstetrical Progress Note ---
Date of Service <Diaz Llanos MD - Last Filed: 04/26/21 07:06> April 26, 2021 Assessment & Plan <Diaz Llanos MD - Last Filed: 04/26/21 07:06> (1) Encounter for care and examination after delivery: PPD 2: stable, routine management * patient voiding and ambulating without difficulty * pain well controlled on analgesia * tolerating regular diet * breast feeding * anticipate discharge today * 6-week outpatient OB follow-up <Cara Esquivel MD - Last Filed: 04/26/21 08:10> (1) Encounter for care and examination after delivery: Subjective <Diaz Llanos MD - Last Filed: 04/26/21 07:06> Mariana is a 30-year-old who is now PPD 2 following spontaneous vaginal delivery at 41.2 weeks. Reports feeling well overall this morning. 1/10 pain well managed on analgesics. Voiding without difficulty. Tolerating meals well and able to ambulate without assistance. Lochia is slowed this morning. B reastfeeding. Review of Systems Denies fever, chills, sweats Denies shortness of breath, difficulty breathing, chest pain, palpitations, chest pressure. Denies breast pain. Denies dysuria. Denies headache or changes in vision Physical Exam <Diaz Llanos MD - Last Filed: 04/26/21 07:06> General: Alert, oriented. No acute distress. Cardiac: Regular rate and rhythm, no murmurs/rubs/gallops. Respiratory: Clear to auscultation bilaterally a/p, no wheezes/rales/rhonchi. No increased work of breathing. Symmetrical chest rise. No respiratory distress. Abdomen: Soft, nontender, nondistended. Bowel sounds present. Uterus: Uterine fundus firm, palpable 3 cm below umbilicus. Lower Extremities: No lower extremity edema or swelling. No deep calf pain. Glendy's negative bilaterally.. Results & Data ([facility]) <Diaz Llanos MD - Last Filed: 04/26/21 07:06> Vital Signs (Past 12 Hours) Vital Signs Temp Pulse Resp BP Pulse Ox 04/26/21 04:15 36.7 C 76 16 105/69 04/25/21 23:30 36.8 C 78 16 96/60 L 99 04/25/21 19:25 36.7 C 83 16 108/65 98 <Cara Esquivel MD - Last Filed: 04/26/21 08:10> Co-Signing Physician Notes Resident Physician Supervision Note: I interviewed and examined the patient. Discussed with Dr. Bunch and agree with findings and plan as documented in the note. Any exceptions or clarifications are listed here: [ ] Documented By: Cara Esquivel MD, FACOG Resident Activity Tracking <Diaz Llanos MD - Last Filed: 04/26/21 07:06> Resident Involvement: Resident Care Provided Care Provided: OB Delivery
[2021-04-26] MEDS: DOCUSATE SODIUM 100 MG CAP PO SCH (08:47)
[2021-04-26] MEDS: PRENATAL VITAMIN 1 TAB PO SCH (08:47)
[2021-04-26] MEDS ORDERED: bisacodyL 10 MG SUPP PR PRN (22:46)
== END 2021-04-26 11:33 | disposition home or self-care (01) | DRG 807 ==
LOC: 4S1 07:46 → 4S2 04-25 01:20